=== PATIENT | female | born 1990 ===

== ENCOUNTER 2018-12-05 17:49 | Emergency (ER) | payer OTHER ==
[2018-12-05 17:54] VITALS: BP 131/87; PULSE 100; RESP 18; TEMP 98.5; O2SAT 97; BMI 30.4
--- NOTE | 2018-12-05 18:26 | ED PDOC ---
Arrival/HPI - General Historian: Patient - Critical Care Critical Care Minutes: 30 minutes - History of Present Illness Narrative History of Present Illness (Text): 12/05/18 18:24 28 year old female presents with lower abdominal pain. Unable to acertain remainder of history as patient signed out AMA. Time/Duration: Prior to Arrival Symptom Onset: Gradual Symptom Course: Unchanged <Maykel Wall - Last Filed: 12/05/18 19:59> <Rene Owens - Last Filed: 12/05/18 20:24> - General Chief Complaint: Abdominal Pain Past Medical History - Provider Review Nursing Documentation Reviewed: Yes - Psychiatric Hx Substance Use: No <Maykel Wall - Last Filed: 12/05/18 19:59> Family/Social History - Physician Review Nursing Documentation Reviewed: Yes Family/Social History: No Known Family HX Smoking Status: Never Smoked Hx Alcohol Use: No Hx Substance Use: No <Maykel Wall - Last Filed: 12/05/18 19:59> Allergies/Home Meds <Maykel Wall - Last Filed: 12/05/18 19:59> <Rene Owens - Last Filed: 12/05/18 20:24> Allergies/Adverse Reactions: Allergies No Known Allergies Allergy (Verified 12/05/18 18:02) Home Medications: Home Meds Medication Instructions Recorded Confirmed Pnv No.95/Ferrous Fum/Folic AC 1 tab PO DAILY 12/05/18 12/05/18 [ Vitamin Tablet] Review of Systems - Review of Systems Systems not reviewed;Unavailable: Other (Left AMA) <Maykel Wall - Last Filed: 12/05/18 19:59> Physical Exam Vital Signs Reviewed: Yes Vital Signs Temp Pulse Resp BP Pulse Ox 12/05/18 17:53 98.5 F 100 H 18 131/87 97 Temperature: Afebrile Blood Pressure: Normal Pulse: Tachycardic Respiratory Rate: Normal Appearance: Positive for: Non-Toxic, Comfortable Pain Distress: None Mental Status: Positive for: Alert and Oriented X 3 <Maykel Wall - Last Filed: 12/05/18 19:59> Vital Signs Temp Pulse Resp BP Pulse Ox 12/05/18 17:53 98.5 F 100 H 18 131/87 97 <Rene Owens - Last Filed: 12/05/18 20:24> Medical Decision Making ED Course and Treatment: 12/05/18 18:24 28 year old female presents with abdominal pain. Plan: Patient signed out AMA. Patient made aware of risks of leaving including and demise. Patient acknowledged them and signed AMA form. <Maykel Wall - Last Filed: 12/05/18 19:59> ED Course and Treatment: Seen and examined with resident. 12/05/18 18:37 Historical Attestation Patient is a 28 year old female who presents to the emergency department complaining of lower abdominal pain. Physical Exam Attestation GI: soft, nontender <Rene Owens - Last Filed: 12/05/18 20:24> Disposition/Present on Arrival - Present on Arrival Any Indicators Present on Arrival: No History of DVT/PE: No History of Uncontrolled Diabetes: No Urinary Catheter: No History of Decub. Ulcer: No History Surgical Site Infection Following: None - Disposition Have Diagnosis and Disposition been Completed?: No Disposition Time: 18:26 <Maykel Wall - Last Filed: 12/05/18 19:59> <Rene Owens - Last Filed: 12/05/18 20:24> - Disposition Diagnosis: Left against medical advice Condition: UNKNOWN Forms: [employer] (Persian)
== END 2018-12-05 18:52 | disposition left against medical advice (07) ==
LOC: ED 17:49
DX: R10.30 Lower abdominal pain, unspecified (principal)